=== PATIENT | male | born 1955 | race Caucasian/White ===

== ENCOUNTER 2020-07-12 13:43 | Outpatient (RCR) | payer OTHER, SELFPAY ==
--- NOTE | 2020-07-12 15:43 | OT.OP.EVAL ---
Visit Care Team Role Provider Type Tera Boswell PA-C Primary Care Provider Non-Staff Specialty: Medical Address: [address] [place], [address] Phone: Email: Arabella Fuentes MD Attending Provider Non-Staff Referring Provider Specialty: Neurology Address: [address] [place], [address] Email: Occupational Therapy Initial Evaluation OT Outpatient Adult Evaluation Start: 07/12/20 15:26 Freq: Status: Active Protocol: Document 07/12/20 15:26 AMS (Rec: 07/12/20 15:43 AMS [id number]) General Information Visit Start Time 14:30 Visit Stop Time 15:10 Total Visit Minutes 40 Plan of Care Dates 07/12/20-07/19/20 Insurance Information - Eval Charge Only Treatment Setting Outpatient Care Note Type Initial Evaluation Referring Physician Arabella Fuentes MD Reason for Referral Improved function of the right hand Assessment/Plan Treatment Assessment Patient is a 65 year-old right hand dominant male diagnosed with Parkinson's disease who was referred to outpatient OT to improve function of the right hand. Health History form was completed; significant for Parkinsons. Taking 2 different medications to assist with management of Parkinsonian symptoms. Pain Grid was completed for hands; No Pain was indicated. Patient completed QuickDASH UE Outcome Measure and obtained a score = 11.4. Patient also completed QuickDASH Work Module and obtained a score = 37.5. Patient works full-time as a [employer]. Patient resides with his in [place] in a 2-story home. 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 Education was completed re: proximal stabilization and use of wrist weight to support mouse use. Patient positively responded to these suggestions. Therapist also discussed seeking out testing accommodations; information pertinent to testing center and testing accommodations was given to patient for reference. Patient was also provided with information re: Parkinson's and computer adaptations. Patient denied need for continued outpatient OT services at this time. Provided patient with contact information if questions were to arise in the near future. Patient Recommendations Discharge from Occupational Therapy
== END 2020-07-15 07:43 | disposition home or self-care (01) ==
LOC: OT 13:43
PROVIDERS: PCP Physician Assistant; Referring Provider Psychiatry & Neurology Neurology; Visit Provider Psychiatry & Neurology Neurology
DX: G20 Parkinson's disease (principal)
CPT/HCPCS: 97165

== ENCOUNTER → 2021-10-28 13:19 | Outpatient (CLI) | payer MEDICARE, OTHER, SELFPAY ==
--- NOTE | 2021-10-28 | DI.RAD.S_ITS ---
PROCEDURE: XR HIP W PEL IF DONE RT 2V INDICATIONS: LOWER BACK AND RT HIP PAIN TECHNIQUE: AP pelvis with lateral view(s) of the right hip(s). COMPARISON: None. FINDINGS: Bones: No fractures or dislocations. Pelvic ring appears intact. No suspicious bony lesions. Mild periarticular osteophyte formation at the bilateral hip joints. Soft tissues: The visualized bowel gas pattern is normal. No suspicious soft tissue calcifications. IMPRESSION: Bilateral hip osteoarthritis. No acute fracture. No osseous lesion. If symptoms and/or clinical suspicion for pathology persist, further assessment with repeat, or advanced imaging (e.g., CT, MRI, or bone scan) may be helpful for further assessment. Dictated by: Mike Mccormack M.D. on 10/28/2021 at 15:00 Approved by: Mike Mccormack M.D. on 10/28/2021 at 15:00
--- NOTE | 2021-10-28 | DI.RAD.S_ITS ---
PROCEDURE: XR LUMBAR SPINE 2-3V INDICATIONS: LOWER BACK AND RT HIP PAIN TECHNIQUE: 3 views of the lumbar spine were acquired. COMPARISON: None. FINDINGS: Bones: 5 [id number] vertebrae are present. There is loss of normal lumbar lordosis. Mild rightward curvature of the upper lumbar spine. Roughly 5 mm of retrolisthesis of L2 on L3. Multilevel disc space narrowing and endplate osteophyte formation, worst at L2-L3 and L3-L4. Facet hypertrophy throughout the lumbar spine. No vertebral body compression fractures. No suspicious bony lesions. Soft tissues: Overlying bowel gas pattern is normal. No suspicious soft tissue calcifications. IMPRESSION: 1. Multilevel degenerative disc and facet disease. 2. No acute fracture. No osseous lesion. If symptoms and/or clinical suspicion for pathology persist, further assessment with repeat, or advanced imaging (e.g., CT, MRI, or bone scan) may be helpful for further assessment. Dictated by: Mike Mccormack M.D. on 10/28/2021 at 15:00 Transcribed by: EVELYN on 10/28/2021 at 15:01 Approved by: Mike Mccormack M.D. on 10/28/2021 at 16:30
== END ==
PROVIDERS: PCP Physician Assistant; Referring Provider Family Medicine; Visit Provider Family Medicine
DX: M51.16 Intervertebral disc disorders with radiculopathy, lumbar region (principal); M25.551 Pain in right hip; M16.0 Bilateral primary osteoarthritis of hip
CPT/HCPCS: 72100; 73502

== ENCOUNTER 2022-04-21 12:15 | Day surgery (SDC) | payer MEDICARE, OTHER, SELFPAY ==
--- NOTE | 2022-04-21 | PATH_ITS ---
[facility] Accession Number: [id number] No. of containers..01 Tissue . 01 Material submitted: . colon - TRANSVERSE COLON POLYP . 01 Diagnosis: Transverse Colon, Polypectomy: Tubular adenoma. YASH 04/24/2022 1045 Local . 01 Electronically signed: . Elizabeth Mathew MD, Pathologist NPI- [id number] . 01 Gross description: . TRANSVERSE COLON POLYP: Received in formalin are 2 fragment(s) of sage, soft tissue measuring 0.6 x 0.2 x 0.2 cm to 0.5 x 0.2 x 0.2 cm submitted entirely in 1 cassette(s) /CPE 04/22/2022 0845 Local . 01 Pathologist provided ICD-10: D12.3 . 01 CPT . 734909 Specimen Comment: A courtesy copy of this report has been sent to [phone] Performed at: 01 [facility] [address] [place] [address], [place], [place] [id number] MD Osbaldo Leonardo MD Phone: [phone]
[2022-04-21 12:59] VITALS: BP 112/74; PULSE 66; RESP 16; TEMP 36.6; O2SAT 97; BMI 29.8
[2022-04-21] MEDS: LACTATED RINGERS 1,000 ML 200 ML IV (13:16)
[2022-04-21 14:27] VITALS: BP 111/69; PULSE 55; RESP 13; TEMP 36.6; O2SAT 97
[2022-04-21 14:37] VITALS: BP 108/76; PULSE 60; RESP 14; O2SAT 98
[2022-04-21 14:43] VITALS: BP 145/78; PULSE 60; RESP 12; O2SAT 98
--- NOTE | 2022-04-21 15:00 | PM.OP.COLON ---
Operative Date/Time/Diagnoses Date of procedure: 04/21/22 Time of procedure: 15:00 Pre-op diagnosis: Colorectal screening Post-op diagnosis: other (Colonic polyp) Procedure & Clinicians Study performed: Colonoscopy and polypectomy Same procedure as scheduled: Yes Indications: Colorectal screening Surgeon: Kimani Blanchard Procedure Notes Procedure in detail: The history and physical was performed/updated and the patient is ASA class is 2. The procedure was discussed in detail with the patient. Potential risks complications including infection, bleeding, missed diagnosis, perforation, need for surgery, and were explained. Their questions were answered and informed consent was obtained. Patient was brought to the procedure room and placed standard monitoring equipment. The patient's vital signs were monitored continuously throughout the entire procedure. Prior to starting time-out was performed. The patient was placed in the left lateral recumbent position. Procedural sedation was administered by anesthesia. Examination began with a thorough inspection of the perianal area there was no evidence of fissures, fistulae, external hemorrhoids or cutaneous malignancy. The colonoscopy scope was then placed into the anal canal and was advanced to the cecum, which was identified by the ileocecal valve, the appendiceal orifice and the confluence of the taenia. The scope was then slowly withdrawn examining colon thoroughly in all directions, irrigating it of any residual stool. Within the transverse colon there was a 5 mm polyp which was removed with cold snare. The remainder of the colon was normal The patient tolerated the procedure well. They will be discharged once criteria are met. The prep was of good/excellent quality. The withdrawl time was 7 minutes. Specimen(s): other (Transverse polyp) Impression: Colonic polyp x1 Post-procedure Recommendations: High fiber diet Plan for aftercare: Follow-up is dependent on pathology findings Disposition: same day surgery
--- NOTE | 2022-04-27 14:57 | PM.HP.1 ---
History of Present Illness History of Present Illness Date Patient Seen: 04/21/22 Time Patient Seen: 14:58 Chief complaint: Colonoscopy Narrative: The patient presents for colorectal screening. No personal or family history of colon cancer. On further history denies any recent gastrointestinal symptoms. No nausea, vomiting, abdominal pain, loss of appetite, unexplained weight loss, change in bowel habits, or blood per rectum. Patient History Medical History (Updated 04/21/22 @ 13:14 by Katie Gaona RN) Cataract Parkinson disease Surgical History H/O shoulder surgery (~2015) Family & Social History Tobacco & Substance use: Tobacco type cigarettes Smoking Status Never smoker alcohol intake frequency a few times a week Substance Use Type does not use Meds Home Medications and Allergies Home Medications Medication Instructions Recorded Confirmed Type amantadine HCl 100 mg capsule 100 mg PO TID 04/21/22 04/21/22 History pramipexole 0.25 mg tablet 0.25 mg PO BID 04/21/22 04/21/22 History rasagiline 1 mg tablet 1 mg PO DAILY 04/21/22 04/21/22 History sildenafil 25 mg tablet 25 mg PO DAILY PRN Sexual Activity 04/21/22 04/21/22 History Allergies Allergy/AdvReac Type Severity Reaction Status Date / Time No Known Drug Allergies Allergy Verified 04/21/22 12:54 Exam Vital Signs (past 8 hours): Oxygen Delivery Method Room Air Narrative Exam Narrative: General adult male alert oriented no acute distress Assessment & Plan Assessment & Plan narrative: The patient requires colorectal screening and colonoscopy is recommended. Technical details were discussed. Risks, benefits, alternatives explained. Risks including but not limited to myocardial infarction, aspiration, bleeding, pain, missed lesion, incomplete examination, need for further radiographic studies, colonic perforation, and need for major abdominal surgery were discussed. All questions were answered to their satisfaction, and they are in agreement with this plan. Time Spent With Patient Critical Care time: I spent a total of [] minutes of critical care time on this patient's care today; this time is exclusive of procedural time.
== END 2022-04-21 15:00 | disposition home or self-care (01) ==
PROVIDERS: PCP Family Medicine; Referring Provider Surgery; Visit Provider Surgery
PROC: 0DJD8ZZ Inspection of Lower Intestinal Tract, Via Natural or Artificial Opening Endoscopic (ICD-10-PCS; CPT 45378; principal; 2022-04-21 13:30)
DX: Z12.11 Encounter for screening for malignant neoplasm of colon (principal); D12.3 Benign neoplasm of transverse colon
CPT/HCPCS: 45385; J2704

== ENCOUNTER → 2023-03-02 06:40 | Outpatient (CLI) | payer MEDICARE, OTHER, SELFPAY ==
--- NOTE | 2023-03-02 06:43 | DI.US.S_ITS ---
PROCEDURE: US ABD AORTA ANEURYSM SCREEN INDICATIONS: SCREENING FOR AAA TECHNIQUE: Real time scanning was performed of the aorta and iliac arteries, with image documentation. COMPARISON: None. FINDINGS: Aorta: Proximal aortic diameter measures 2.5 cm. Mid-aorta measures 1.8 cm. Distal aortic diameter is 1.7 cm. Iliac arteries: Right common iliac artery measures 1.3 cm. Left common iliac artery measures 1.3 cm. IMPRESSION: No aneurysmal dilation. Dictated by: Blanca Diehl M.D. on 03/02/2023 at 9:59 Approved by: Blanca Diehl M.D. on 03/02/2023 at 9:59
== END ==
LOC: US 06:41
PROVIDERS: PCP Family Medicine; Referring Provider Family Medicine; Visit Provider Family Medicine
DX: Z13.6 Encounter for screening for cardiovascular disorders (principal)
CPT/HCPCS: 76706

== ENCOUNTER → 2024-10-03 16:58 | Outpatient (CLI) | payer MEDICARE, OTHER, SELFPAY ==
--- NOTE | 2024-10-03 17:01 | DI.RAD.S_ITS ---
PROCEDURE: XR RIBS LT MIN 3V W CXR1V INDICATIONS: RIB PAIN TECHNIQUE: 2 views of the ribs were acquired, along with a single view chest. COMPARISON: None. FINDINGS: Surgical changes and devices: None. Bones and chest wall: No fractures or dislocations. No suspicious bony lesions. Overlying soft tissues appear unremarkable. Lungs and pleura: No pleural effusions or pneumothorax. Lungs appear clear. Mediastinum: Mediastinal contours appear normal. Heart size is normal. IMPRESSION: No displaced rib fracture or pneumothorax. Dictated by: Alexis Eddy M.D. on 10/04/2024 at 9:35 Approved by: Alexis Eddy M.D. on 10/04/2024 at 9:36
== END ==
PROVIDERS: PCP Family Medicine; Referring Provider Family Medicine; Visit Provider Family Medicine
DX: R07.81 Pleurodynia (principal)
CPT/HCPCS: 71101